=== PATIENT | male | born 1955 | race Caucasian/White ===

== ENCOUNTER 2017-01-29 10:06 | Day surgery (SDC) | payer OTHER ==
[~2017-01-29] VITALS: Ht 177.8 cm; Wt 70.0 kg
[~2017-01-29 10:06] MED LIST: ASPI-973 PO; ATOR80TA PO; CHOL100043 PO; Sodium Chloride LOK Flush 10 mL Syringe IV PRN; fentaNYL-PF 50 mCg/mL 2 mL Inj IVPUSH PRN
[2017-01-29 10:45] VITALS: BP 133/77; PULSE 62; RESP 17; O2SAT 100
[2017-01-29] MEDS: 0.9% Sodium Chloride 1,000 ML IV SCH ×4 (11:39→12:01)
--- NOTE | 2017-01-29 12:08 | PCM.ENDCOL ---
Colonoscopy Date of Service: Jan 29, 2017 Physician Juan Morris MD Pre Procedure Diagnosis: Personal history of colon polyp Post Procedure Dx & Findings: Polyp hemorrhoids and diverticula Procedure Colonoscopy Prep adequate Withdrawal time 18 minutes After unremarkable rectal examination the Olympus video colonoscope was inserted patient's anal canal and was advanced to cecum. Landmarks were identified including the ileocecal valve and appendiceal orifice. Scope was withdrawn systematically. Visualized colonic mucosa showed healthy shiny mucosa with normal healthy-appearing vasculature. In the ascending colon, there was a 4 mm polyp which was removed completely using cold snare. In the transverse colon there were two 2 mm polyps which were removed completely using cold snare. In the rectum there was a less than 1 mm polyp which was removed completely using cold forceps. In the sigmoid colon, there were many medium size diverticuli. In the rectum retroflexion was done which showed hemorrhoids. Anal canal was inspected carefully on the way out and hemorrhoids noted. Impression Polyps 4 status post complete removal Diverticuli Personal history of colon polyp Hemorrhoids Recommendation Repeat colonoscopy 3 years Diverticular diet Presedation Assessment Risks and Benefits Informed consent was obtained from the patient after all risks and benefits including but not limited to drug reaction, infection, pain, bleeding, perforation, as well as alternatives were discussed. Patient monitoring Continuous pulse oximetry, cardiac monitoring, blood pressure monitoring, IV access, and oxygen at 2L per nasal cannula. Periprocedural Fentanyl: Fentanyl 100mcg Incrementally Midazolam: Midazolam 5mg Incrementally Complications There were no periprocedural complications identified. Post Procedure Plan Post Procedure Recommendations 1. Restrict activities today. 2. Resume normal activities in the morning. 3. Resume medications. 4. Patient informed of normal post procedure side effects as bloating, drowsiness, blood streaking in the stool. 5. average risk CRCS. If colon polyps come back as: -Hyperplastic- can repeat colonoscopy in 10 years -Tubular adenoma- repeat colonoscopy in 5 years -Tubulovillous/villous adenoma- repeat colonoscopy in 3 years -If any dysplasia- return to clinic as soon as possible 6. Please don't hesitate to call me with any questions. Juan Morris MD Jan 29, 2017 12:08
[2017-01-29 12:11] VITALS: BP 118/75; PULSE 57; RESP 12; O2SAT 100
[2017-01-29 12:21] VITALS: BP 106/73; PULSE 62; RESP 16; O2SAT 100
--- NOTE | 2017-01-30 13:59 | PATH ---
SURGICAL PATHOLOGY Attending Physician:Juan Morris M.D. CASE STATUS: Signed Out PATIENT NAME: AVTAR MAYFIELD PID: [id number] : 1955 DATE COLLECTED:01/29/2017 21:57 SPECIMEN: 1: Colon, Biopsy 2: Colon, Biopsy 3: Colon, Biopsy CLINICAL HISTORY: COLON POLYPS 1). ASCENDING COLON POLYP 2). TRANSVERSE COLON POLYP 3). RECTAL POLYP FINAL DIAGNOSIS: 1.ASCENDING COLON POLYP: SESSILE SERRATED ADENOMA. 2.TRANSVERSE COLON POLYP: TUBULAR ADENOMA (ONE FRAGMENT). SESSILE SERRATED ADENOMA (TWO FRAGMENTS). 3.RECTAL POLYP: TUBULAR ADENOMA. ICD10 CODE D12.6 GROSS DESCRIPTION: The specimen is received in three formalin filled containers labeled with the patient's name. 1). The specimen is sublabeled "ascending colon polyp" and consists of 3 portions of tissue which aggregate to 1.0 x 0.3 x 0.2 CM. The specimen is entirely submitted in cassette 1A. 2). The specimen is sublabeled "transverse colon polyp" and consists of 3 portions of tissue which aggregate to 0.4 x 0.4 x 0.3 CM. The specimen is entirely submitted in cassette 2A. 3). The specimen is sublabeled "rectal polyp" and consists of a 0.3 x 0.3 x 0.3 CM portion of tissue which is entirely submitted in cassette 3A. 01/29/2017 DAC MICRO DESCRIPTION: See diagnosis. ICD-9 CODES: CPT CODES: 1: 13747 2: 30160 3: 32254 Electronically Signed Out Elmer Moon MD [facility] [address], [place] [address] Technical component performed at [facility], [facility] [address], [address]
== END 2017-01-29 23:59 | disposition home or self-care (01) ==
LOC: END 10:06
PROVIDERS: ATTEND Internal Medicine
DX: Z12.11 Encounter for screening for malignant neoplasm of colon (principal); D12.2 Benign neoplasm of ascending colon; D12.3 Benign neoplasm of transverse colon; D12.8 Benign neoplasm of rectum; Z86.010 Personal history of colon polyps; K57.30 Diverticulosis of large intestine without perforation or abscess without bleeding; K64.9 Unspecified hemorrhoids; I25.10 Atherosclerotic heart disease of native coronary artery without angina pectoris; Z79.82 Long term (current) use of aspirin; N40.0 Benign prostatic hyperplasia without lower urinary tract symptoms; Z95.5 Presence of coronary angioplasty implant and graft
CPT/HCPCS: 45380; 45385; 99153; G0500; J2250; J3010; J7030